=== PATIENT | female | born 1965 | race Caucasian/White ===

== ENCOUNTER 2016-09-02 05:42 | Emergency (ER) | payer BC | END 2016-09-02 07:40 | disposition home or self-care (01) | LOC: ER 05:42 | DX: G43.909 Migraine, unspecified, not intractable, without status migrainosus (principal); K21.9 Gastro-esophageal reflux disease without esophagitis; F17.210 Nicotine dependence, cigarettes, uncomplicated; Z90.710 Acquired absence of both cervix and uterus; Z79.899 Other long term (current) drug therapy | CPT/HCPCS: 96361; 96374; 96375; J1200; J1885; J2765 ==